=== PATIENT | female | born 1965 | race Caucasian/White ===

== ENCOUNTER 2024-08-19 07:19 | Day surgery (SDC) | payer BC ==
[2024-08-19] MEDS: Lactated Ringers 1,000 ML IV SCH (08:04)
[2024-08-19] MEDS ORDERED: Propofol 200 MG/20 ML SDV ONE ×3 (08:18→09:45)
[2024-08-19] MEDS ORDERED: fentaNYL 50 MCG/ML SDV ONE (08:18)
[2024-08-19] MEDS ORDERED: Midazolam 1 MG/ML 2 ML SDV ONE (08:18)
[2024-08-19] MEDS ORDERED: Lactated Ringers 1,000 ML ONE (10:05)
== END 2024-08-19 11:26 | disposition home or self-care (01) ==
LOC: JP.SDS 07:19
PROVIDERS: ATTEND Family Medicine
DX: Z12.11 Encounter for screening for malignant neoplasm of colon (principal); R19.5 Other fecal abnormalities; D12.0 Benign neoplasm of cecum; K57.30 Diverticulosis of large intestine without perforation or abscess without bleeding
CPT/HCPCS: 00811; 45380; J2250; J2704; J3010; J7120; 88305